=== PATIENT | male | born 1980 | race Caucasian/White ===

== ENCOUNTER 2017-10-28 14:17 | Observation (INO) | payer OTHER, SELFPAY ==
[2017-10-28] VITALS (8 sets, daily range): BP systolic 105–139; BP diastolic 49–87; PULSE 61–93; RESP 16–18; TEMP 36.5–36.7; O2SAT 92–99; BMI 34.2; BMI 34.3
--- NOTE | 2017-10-28 13:00 | PILCYST_PTH ---
PATIENT: MARTINE JENSEN LOC: [facility] U#:[id number] AGE/SX: 37/M ROOM: [facility]313 RE10/28/[address]: Dr. Jermaine Richardson MD : 1980 BED: 1 DIS: 10/29/2017 SPEC #: [id number] RECD: 10/28/17 16:01 STATUS: STEPH YEN #: [id number] JAK: 10/28/17 13:[address]: Jermaine Richardson DEPT: SURGICAL PATHOLOGY RECD BY: Antoni Hernandez ENTERED: 10/29/17 12:07 SP TYPE: Pilonidal OTHR DR: Dr. Susan Reyes MD Tissues: A - PILONIDAL TISSUE B - PILONIDAL TISSUE Procedures: Surgery Specimen Level III HEADER OPERATION: Excision pilonidal cyst PRE-OP DIAGNOSIS: Pilonidal cyst TISSUE SUBMITTED: A ? Pilonidal sinus, B ? Pilonidal cavity MICROSCOPIC DIAGNOSIS A. Pilonidal sinus: Consistent with pilonidal cyst with associated inflammation. B. Pilonidal cavity: Consistent with pilonidal cyst with associated inflammation. NARCISO:[email or web address] 10/30/17 MICROSCOPIC DESCRIPTION Slides are reviewed. GROSS DESCRIPTION A - Received in fixative is one container labeled with the patient's name and designated pilonidal sinus. The specimen consists of a piece of skin with underlying tissue measuring 2 x 1 x 1 cm. The specimen is serially sectioned and submitted entirely in one cassette. B - Received in fixative is one container labeled with the patient's name and designated pilonidal cavity. The specimen consists of a piece of yellow adipose tissue measuring 6 x 4 x 2 cm. Also present in the container are two detached pieces of soft tissue measuring in aggregate 2 x 1.5 x 0.5 cm. Sections reveal focally congested surfaces. No mass lesion is identified. Director Of Managed Care sections are submitted in two cassettes. / NARCISO:[email or web address] 10/29/17 TC:5 CPT: 98651 x2
[2017-10-28] MEDS: Bupivacaine Mpf 0.5% 30 ML VIAL (13:56)
--- NOTE | 2017-10-28 14:18 | PCM.OPRPT ---
Problem List (1) Pilonidal cyst with abscess Status: Acute Report of Operation Date of Procedure: 10/28/17 Pre-Operative Diagnosis: Pilonidal cyst with infection Post-Operative Diagnosis: Same Surgery/Procedure Performed:: Pilonidal cystectomy with closure over drain Description of Surgical Findings:: The patient is a large pilonidal cyst which measured 10 cm long with several sinuses. There was purulent material within the cyst. Specimen's removed: Pilonidal sinuses and cyst Drains: [place] Description of Procedure: The patient was brought back to the operating room and general anesthesia was induced. Next the patient was placed in prone jackknife position. The area on his backside was prepped and draped in the usual sterile fashion. Next a probe was placed through the superior opening where the purulent material was expressed. This was extended downward and sinus extended a significant way downward. Using a scalpel the sinus was opened. This was taken all the way down to the last sinus. Next the hemostasis was obtained with electrocautery. The pilonidal cavity was excised using electrocautery. Next the cavity was irrigated and electrocautery was used to obtain hemostasis. The cavity was approximately 10 cm long. There was good approximation with minimal tension and so I decided to close the incision. The incision was injected with Marcaine. I placed the Gabby drain into the cavity and sutured it to the superior edge of the incision. Next I used interrupted 2-0 Vicryl sutures to close the subcutaneous tissue. Next interrupted 2-0 nylon sutures were used in a vertical mattress fashion. This closed the incision well. 4 x 4's and bandages were placed over the incision as well as mesh panties.
[2017-10-28] MEDS: oxyCODONE 5 MG Tablet PO ×2 (15:51→20:40)
[2017-10-28] MEDS: Acetaminophen 325 MG Tablet 650 MG PO (20:41)
[2017-10-28] MEDS: Venlafaxine XR 75 MG Capsule PO (20:47)
[2017-10-28] MEDS: Docusate Sodium 100 MG Capsule PO (20:47)
[2017-10-29] MEDS: oxyCODONE 5 MG Tablet PO ×3 (01:54→10:39)
[2017-10-29 04:21] VITALS: BP 102/49; PULSE 60; RESP 18; TEMP 36.5; O2SAT 94
[2017-10-29] MEDS: Acetaminophen 325 MG Tablet 650 MG PO (06:14)
--- NOTE | 2017-10-29 09:29 | PCM.DC.REC ---
Discharge Diet: No Restrictions Discharge Activity: Return to Normal Activity, May Not Drive - while you are taking narcotic pain medications. Additional Activity Instructions:: Be aware that pain medications may cause nausea. You should typically eat light foods as you take your pain medications. Pain medications may also cause constipation, if you have difficulty with this please discuss with your doctor. Call your doctor if your incision/area has: Continuous Slow Oozing, Sudden Increased Bleeding, Increased Pain/ Swelling, Increased Redness, Foul Smelling Discharge, Swelling at the incision site Call your doctor if you observe: Fever of 101 or Higher Additional Dressing/Incision Instructions:: Change dressing as needed. Use hemorrhoid donut when sitting on hard surfaces Allergies/Adverse Reactions: Allergies No Known Allergies Allergy (Verified 10/21/17 13:18) Medications to take at Discharge Minocycline [Minocin] 100 mg PO DAILY 10/21/17 Venlafaxine XR [Effexor Xr] 75 mg PO DAILY 10/21/17 Docusate Sodium [Colace] 100 mg PO BID capsule 10/29/17 Oxycodone HCl/Acetaminophen [Percocet 5/325] 1 - 2 tablet PO Q4H PRN PRN #50 tablet 10/29/17 The following prescriptions were given: Oxycodone HCl/Acetaminophen [Percocet 5/325] 1 - 2 tablet PO Q4H PRN PRN #50 tablet PRN Reason: Pain Primary Care Physician: Susan Reyes MD [Primary Care Provider] - Please Follow Up With: Jermaine Richardson MD When: Call today to make 1 week follow up appt for drain removal [phone]
--- NOTE | 2017-10-29 09:33 | PCM.DC.SUM ---
Discharge Date and Diagnosis - Problem List Patient Problems: Active and Suspected Problems Pilonidal cyst with abscess (Acute) Date of Admission: 10/28/17 Date of Discharge: 10/29/17 - Primary Discharge Diagnosis Active and Suspected Problems Pilonidal cyst with abscess (Acute) Hospital Course and Treatment Operations: - - Pilonidal cystectomy Summary of Care Provided: The patient is a 37 year old M who presented for pilonidal cystectomy yesterday. After surgery he was admitted to short-term observation for pain control as it was a very large cyst measuring around 10 cm. The following morning the patient was tolerating a diet and doing well. He will be discharged home in stable condition on oral pain medication. Discharge Diet: No Restrictions Discharge Activity: Return to Normal Activity, May Not Drive - while you are taking narcotic pain medications. Additional Activity Instructions:: Be aware that pain medications may cause nausea. You should typically eat light foods as you take your pain medications. Pain medications may also cause constipation, if you have difficulty with this please discuss with your doctor. Call your doctor if your incision/area has: Continuous Slow Oozing, Sudden Increased Bleeding, Increased Pain/ Swelling, Increased Redness, Foul Smelling Discharge, Swelling at the incision site Call your doctor if you observe: Fever of 101 or Higher Additional Dressing/Incision Instructions:: Change dressing as needed. Use hemorrhoid donut when sitting on hard surfaces Home Medications: Medications to take at Discharge Minocycline [Minocin] 100 mg PO DAILY 10/21/17 Venlafaxine XR [Effexor Xr] 75 mg PO DAILY 10/21/17 Docusate Sodium [Colace] 100 mg PO BID capsule 10/29/17 Oxycodone HCl/Acetaminophen [Percocet 5/325] 1 - 2 tablet PO Q4H PRN PRN #50 tablet 10/29/17 Following Prescrptions Were Given to Patient: Oxycodone HCl/Acetaminophen [Percocet 5/325] 1 - 2 tablet PO Q4H PRN PRN #50 tablet PRN Reason: Pain Primary Care Physician: Susan Reyes MD [Primary Care Provider] - Please Follow Up With: Jermaine Richardson MD When: Call today to make 1 week follow up appt for drain removal [phone] Meaningful Use Info Meaningful Use Diagnoses (Choose all that apply): None applicable
[2017-10-29 10:30] VITALS: BP 114/69; PULSE 60; RESP 16; TEMP 36.6; O2SAT 94
[2017-10-29] MEDS: Venlafaxine XR 75 MG Capsule PO (10:38)
[2017-10-29] MEDS: Docusate Sodium 100 MG Capsule PO (10:38)
== END 2017-10-29 12:09 | disposition home or self-care (01) ==
LOC: MS3 14:42
PROVIDERS: Admitting Provider Surgery; Visit Provider Surgery
PROC: (CPT 11772; principal; 2017-10-28 12:45)
DX: L05.01 Pilonidal cyst with abscess (principal); F41.9 Anxiety disorder, unspecified; F32.9 Major depressive disorder, single episode, unspecified; Z79.899 Other long term (current) drug therapy; F17.200 Nicotine dependence, unspecified, uncomplicated
CPT/HCPCS: 11772; 88304; 96374; 96376; 99218; J7120; G0378; G0379; J2405

== ENCOUNTER → 2017-11-04 12:25 | Outpatient (CLI) | payer OTHER, SELFPAY | PROVIDERS: Visit Provider Surgery | DX: L05.01 Pilonidal cyst with abscess (principal) | CPT/HCPCS: 87070; 87075; 87077; 87186; 87205 ==

== ENCOUNTER → 2017-11-18 13:52 | Outpatient (CLI) | payer OTHER, SELFPAY ==
[2017-11-18 17:23] LABS: Absolute Lymphocyte Count 1.46 X10^3/ul (0.83-4.51); Absolute Neutrophil Count 10.2 X10^3/uL (2.0-7.7); Basophil# 0.03 X10^3/uL; Basophil% 0.2 % (0-1); Eosinophil# 0.18 X10^3/uL; Eosinophils% 1.4 % (0-5); Hematocrit 45.9 % (40-54); Hemoglobin 15.4 g/dl (13.0-16.5); Lymphocyte # 1.46 X10^3/ul (4.0); Lymphocyte % 11.2 % (19-41); Mean Corp Hgb Conc 33.6 g/gl (32-36); Mean Corpuscular Volume 92.5 fL (80-94); Mean Platelet Vol. 10.7 fl (6.2-12.0); Monocyte# 1.05 X10^3/uL; Monocyte% 8.1 % (0-10); Neutrophil # 10.24 X10^3/uL (2.7-7.7); Neutrophil % 78.9 % (47-70); Platelet Count 306 K/mm3 (150-450); RBC Distribution Width CV 13.9 % (11.6-14.6); RBC Distribution Width SD 47.1 fl (35.1-43.9); Red Blood Count 4.96 M/mm3 (4.6-6.2)
[2017-11-18 18:00] LABS: ALB/GLOB Ratio 1.1 RATIO (0.9-2.4); AST(SGOT) 42 U/L (15-37); Alanine Aminotransfer ALT/SGPT 173 U/L (16-61); Albumin, Serum 3.9 g/dL (3.2-5.0); Alkaline Phosphatase 90 U/L (45-117); Anion Gap 9 (5-15); BUN 12 mg/dL (7-18); BUN/Creat Ratio 14.7 RATIO (10-20); Calcium,Total 8.8 mg/dL (8.5-10.1); Chloride 104 mmol/L (98-107); Creatinine, Serum 0.82 mg/dL (0.70-1.30); EST Glomerular Filtration Rate 113 mL/min (>60); Est Glom Filt Rate - Afr Amer 137 mL/min (>60); Globulin 3.5 g/dL (2.2-4.2); Glucose 81 mg/dL (74-106); Protein, Total 7.4 g/dL (6.4-8.2); Sodium Level 138 mmol/L (136-145)
[2017-11-18 18:12] LABS: POSITIVE COUNT NO; POSITIVE DIFFERENTIAL NO; POSITIVE MORPHOLOGY NO
[2017-11-21 05:08] LABS: HEPATITIS B SURFACE AG Negative (Negative); Hepatitis A AB, Total Negative (Negative); Hepatitis A IgM Antibody Negative (Negative); Hepatitis B Core AB IgM Negative (Negative); Hepatitis B Core Ab Total Negative (Negative); Hepatitis Be Ab Negative (Negative); Hepatitis Be Ag Negative (Negative); QNTFERON TB Ag Minus Nil Value < 0 IU/mL (.); QNTFERON TB Ag Value 0.03 IU/mL (.); QNTFERON TB Mitogen Value > 10.00 IU/mL (.); QNTFERON TB Nil Value 0.04 IU/mL (.)
[2017-11-21 17:05] LABS: QNTIFERON TB Gold Negative (Negative)
== END ==
PROVIDERS: Visit Provider Dermatology Pediatric Dermatology
DX: L73.2 Hidradenitis suppurativa (principal); L70.0 Acne vulgaris; Z79.899 Other long term (current) drug therapy; L05.91 Pilonidal cyst without abscess
CPT/HCPCS: 36415; 80053; 85025; 86480; 86704; 86705; 86706; 86707; 86708; 86709; 87340; 87350

== ENCOUNTER → 2025-06-14 | Outpatient (CLI) | payer MEDICAID, SELFPAY ==
[2025-06-14 10:24] LABS: Hematocrit 39.5 % (40-54); Hemoglobin 13.1 g/dL (13.0-16.5); Immature Granulocytes Count 0.040 X10^3/uL (0.0-0.0); Mean Corp Hgb Conc 33.2 g/dL (32-36); Mean Corpuscular Volume 105.1 fL (80-94); NRBC Flagged by Analyzer 0 % (0-5); POSITIVE COUNT YES; RBC Distribution Width CV 12.6 % (11.6-14.6); RBC Distribution Width SD 48.8 fl (35.1-43.9); Red Blood Count 3.76 M/mm3 (4.6-6.2); White Blood Count 9.4 K/mm3 (4.4-11.0)
[2025-06-14 12:04] LABS: Differential Indicated SCAN CRITERIA MET
[2025-06-14 18:06] LABS: AST(SGOT) 28 U/L (<=37); Alanine Aminotransfer ALT/SGPT 31 U/L (<=46); Albumin, Serum 4.3 g/dL (3.5-5.0); Alkaline Phosphatase 71 U/L (40-129); Anion Gap 10 (5-15); BUN 12 mg/dL (4-19); BUN/Creat Ratio 15.3 RATIO (10-20); Calcium,Total 9.2 mg/dL (7.6-11.0); Carbon Dioxide 24.4 mmol/L (21.0-32.0); Chloride 107 mmol/L (98-108); Cholesterol 124 mg/dL (<=200); Globulin 2.2 g/dL (2.2-4.2); Glucose 104 mg/dL (70-99); Low Density Lipoprotein Calc. 81 mg/dL; PSA,Total- Diagnostic 0.33 ng/mL (0.00-4.00); Potassium 4.2 mmol/L (3.3-5.1); Triglycerides 63 mg/dL; Very Low Density Lipoprotein 13 mg/dL (5-40); cholesterol:hdl ratio screen 4.03
[2025-06-14 22:30] LABS: Differential Comment SCANNED
== END | disposition home or self-care (01) ==
LOC: MTLAB 08:50
PROVIDERS: Referring Provider Dermatology Pediatric Dermatology; Visit Provider Dermatology Pediatric Dermatology
DX: Z79.899 Other long term (current) drug therapy (principal)
CPT/HCPCS: 36415; 80053; 80061; 84153; 85025